=== PATIENT | female | born 1975 | race Caucasian/White ===

== ENCOUNTER 2024-01-21 05:51 | Inpatient (IN) ==
[~2024-01-21 05:51] MED LIST: Metoclopramide 5 MG/ML VIAL (10 mg) IV PRN; NS 0.45% 1000 ml BAG 1,000 ML IV SCH; Naloxone 0.4 mg VIAL 0.4 mg/ml 1 ml VIAL IV PRN; Ondansetron 4 mg VIAL 2 MG/ML 2 ml VIAL IV PRN
[2024-01-21] MEDS ORDERED: Midazolam 2 mg/2 ml VIAL 1 mg/ml 2 ml VIAL (2 mg) ONE ×2 (06:28→07:06)
[2024-01-21] MEDS ORDERED: Rocuronium 50 mg VIAL 10 mg/ml 5 ml VIAL (50 mg) ONE ×4 (06:28→11:34)
[2024-01-21] MEDS ORDERED: Dexamethasone IV 4 MG/ML VIAL 1 ml VIAL ONE ×2 (06:28→07:04)
[2024-01-21] MEDS ORDERED: Lidocaine 2% PF 5 ML VIAL ONE (06:28)
[2024-01-21] MEDS ORDERED: fentaNYL 250 mcg/5 ml 50 MCG/ML 5 ml VIAL (250 MCG) ONE ×2 (06:28→11:16)
[2024-01-21] MEDS ORDERED: Propofol 10 MG/ML 20 ML BTL ONE ×2 (06:28→15:52)
[2024-01-21] MEDS ORDERED: Ondansetron 4 mg VIAL 2 MG/ML 2 ml VIAL ONE ×2 (06:28→07:04)
[2024-01-21] MEDS ORDERED: Scopolamine 1 mg/72hr PATCH ONE (07:04)
[2024-01-21] MEDS ORDERED: ceFAZolin 2 GM in NS PREMIX 2 GM/100 ML BAG IVPB ONE ×2 (07:04→11:43)
[2024-01-21] MEDS ORDERED: Heparin 5000 UNITS/ML 1 mL VIAL ONE ×2 (07:04→14:32)
[2024-01-21] MEDS: Lactated Ringers 1000 ml BAG 1,000 ML IV SCH (07:24)
[2024-01-21] MEDS ORDERED: Bupivacaine 0.25% SDV 30 ML ONE (07:27)
[2024-01-21] MEDS ORDERED: ceFAZolin VIAL VIAL ONE (07:27)
[2024-01-21] MEDS ORDERED: Povidone Iodine 5% OPTH 30 ML BTL ONE (07:27)
[2024-01-21] MEDS ORDERED: Gentamicin ADULT 40 MG/ML VIAL (2 ML VIAL = 80 MG) ONE (07:27)
[2024-01-21] MEDS ORDERED: ISOSULFAN BLUE 1% 5 ML VIAL 10 MG/ML SUBCUT ONE (07:28)
[2024-01-21] MEDS ORDERED: Methylene Blue 1% (ANTIDOTE) 10 MG/ML 10 ML SDV VIAL IVPB ONE (07:28)
[2024-01-21 07:54] LABS: Rapid COVID-19 Molecular Undetected (Undetected)
[2024-01-21] MEDS ORDERED: HYDROmorphone 0.5 MG/0.5 ML SYRINGE ONE ×4 (08:48→15:56)
[2024-01-21] MEDS ORDERED: Morphine 2 MG/ML SYRINGE IV PRN (13:49)
[2024-01-21] MEDS ORDERED: Benzocaine/Menthol LOZ PO PRN (13:49)
[2024-01-21] MEDS ORDERED: HYDROcodone/ACETAMIN 5/325 mg TAB PO PRN (13:49)
[2024-01-21] MEDS ORDERED: EPINEPHrine SYR 0.1MG/ML 10 ml SYRINGE IV ONE (15:05)
[2024-01-21] MEDS ORDERED: fentaNYL 100 mcg/2 ml 50 MCG/ML VIAL ONE ×3 (15:06→19:26)
[2024-01-21] MEDS: fentaNYL 100 mcg/2 ml 50 MCG/ML VIAL IV PRN (17:15)
[2024-01-21] MEDS: Acetaminophen IV 1 GM/100ML 1,000 MG/100 ML BAG IV ONE (21:12)
[2024-01-21] MEDS: Scopolamine 1 mg/72hr PATCH TRANSDERM SCH (21:13)
[2024-01-21] MEDS: Scopolamine 1 mg/72hr PATCH TRANSDERM ONE (21:13)
[2024-01-21] MEDS: ceFAZolin VIAL 2 GM in NS 0.9% 100 ml BAG 100 ML IVPB SCH ×2 (21:13→22:55)
[2024-01-21] MEDS: Heparin 5000 UNITS/ML 1 mL VIAL SUBCUT SCH ×2 (21:13→21:53)
[2024-01-21] MEDS: Buffered Lidocaine 1% SYRIN 1 ml INTRADERM ONE (21:13)
[2024-01-21] MEDS: HYDROcodone/ACETAMIN 5/325 mg TAB PO PRN (22:05)
[2024-01-22] MEDS: Morphine 2 MG/ML SYRINGE IV PRN (00:27)
[2024-01-22] MEDS: dilTIAZem 30 MG TAB PO SCH (00:32)
[2024-01-23 10:24] VITALS: BP 121/62
== END 2024-01-23 14:20 | disposition home or self-care (01) | DRG 362 ==
LOC: AA 05:51 → SSU 19:52
PROVIDERS: ADMIT Student in an Organized Health Care Education/Training Program; ATTEND Student in an Organized Health Care Education/Training Program